=== PATIENT | female | born 1965 | race Caucasian/White ===

== ENCOUNTER 2022-11-30 04:24 | Day surgery (SDC) | payer OTHER ==
[2022-11-29 10:16] VITALS: BMI 29.0
[2022-11-30 12:38] VITALS: TEMP 97.7
[2022-11-30 12:44] VITALS: PULSE 60
[2022-11-30 13:01] VITALS: BP 98/50; RESP 14
== END 2022-11-30 14:45 | disposition home or self-care (01) ==
LOC: JASU-ENDO 04:24
PROVIDERS: ATTEND Student in an Organized Health Care Education/Training Program
PROC: 0DBP8ZX Excision of Rectum, Via Natural or Artificial Opening Endoscopic, Diagnostic (ICD-10-PCS; principal; 2022-11-30 11:00)
DX: Z12.11 Encounter for screening for malignant neoplasm of colon (principal); D12.8 Benign neoplasm of rectum; I10 Essential (primary) hypertension
CPT/HCPCS: 88305-TC